=== PATIENT | male | born 1975 | race Caucasian/White ===

== ENCOUNTER 2023-11-15 09:14 | Emergency (ER) | payer SELFPAY ==
[~2023-11-15] VITALS: Ht 188 cm; Wt 84.1 kg
[2023-11-15 09:19] VITALS: TEMP 98.7
[2023-11-15 11:41] VITALS: BP 145/75; PULSE 80
== END 2023-11-15 11:41 | disposition home or self-care (01) ==
LOC: COL.ER 09:14
DX: S61.210A Laceration without foreign body of right index finger without damage to nail, initial encounter (principal); F17.210 Nicotine dependence, cigarettes, uncomplicated; Z23 Encounter for immunization; W26.0XXA Contact with knife, initial encounter